=== PATIENT | male | born 1945 | race Caucasian/White ===

== ENCOUNTER → 2024-08-02 10:58 | Outpatient (REF) | payer OTHER, SELFPAY | LOC: HWRCS 10:58 | PROVIDERS: ATTENDING PHYSICIAN Internal Medicine Cardiovascular Disease; FAMILY PHYSICIAN Internal Medicine | DX: I25.10 Atherosclerotic heart disease of native coronary artery without angina pectoris (principal) | CPT/HCPCS: 93306 ==

== ENCOUNTER → 2024-08-03 12:04 | Outpatient (REF) | payer OTHER, SELFPAY | LOC: HWRCS 12:04 | PROVIDERS: ATTENDING PHYSICIAN Internal Medicine Cardiovascular Disease; FAMILY PHYSICIAN Internal Medicine | DX: I25.10 Atherosclerotic heart disease of native coronary artery without angina pectoris (principal) | CPT/HCPCS: 78452; 93017; A9500; J2785 ==